=== PATIENT | female | born 1970 ===

== ENCOUNTER 2019-03-02 11:37 | Emergency (ER) | payer SELFPAY ==
[~2019-03-02] VITALS: Ht 167.6 cm; Wt 61.2 kg
--- NOTE | 2019-03-02 12:00 | NUR ---
ED Nurse Note: Received report from LIANE Murguia. Observed patient in bed, asleep, arousable to painful stimuli. On room air, no respiratory distress noted.
[2019-03-02 13:04] VITALS: BP 120/76
--- NOTE | 2019-03-02 13:23 | Emergency Room Report ---
History of Present Illness General Chief Complaint: Alcohol Intoxication Source: EMS (Alejandro Jc MD) Present Illness HPI 49-year-old female presents ED for evaluation. Patient brought in by EMS. Per EMS patient presenting for alcohol intoxication. Attempted to take a taxi but went patient appeared to intoxicated cabdriver called 911. EMS states they are familiar with this patient as she has history of alcohol abuse. On arrival patient unable to provide any additional history at this time. No reported head injury. No signs of distress upon arrival. No other aggravating relieving factors. No other associated symptoms (Alejandro Jc MD) Allergies: Coded Allergies: No Known Allergies (Unverified , 03/02/19) Patient History Past Medical History: none Past Surgical History: none Pertinent Family History: none Social History: Reports: alcohol use; Denies: smoking, drug use Now: No - unable to assess Immunizations: UTD Reviewed Nursing Documentation: PMH: Agreed; PSxH: Agreed (Alejandro Jc MD) Nursing Documentation-PMH Past Medical History Deferred: Pt Cognitively Impaired Past Medical History: Deferred (Alejandro Jc MD) Review of Systems All Other Systems: limited (Alejandro Jc MD) Physical Exam Vital Signs Date Time Temp Pulse Resp B/P (MAP) Pulse Ox O2 Delivery O2 Flow Rate FiO2 03/02/19 11:32 105 18 120/76 (91) 98 Room Air Sp02 EP Interpretation: reviewed, normal General Appearance: no apparent distress, GCS 15, non-toxic, lethargic, other - intoxicated Head: normocephalic Eyes: bilateral eye normal inspection, bilateral eye PERRL ENT: normal ENT inspection Neck: normal inspection Respiratory: chest non-tender, lungs clear, normal breath sounds, speaking full sentences Cardiovascular #1: regular rate, rhythm, no edema Gastrointestinal: normal inspection Rectal: deferred Genitourinary: no CVA tenderness Musculoskeletal: normal inspection Neurologic: other - intoxicated Psychiatric: normal inspection Skin: no rash Lymphatic: normal inspection (Alejandro Jc MD) Medical Decision Making Diagnostic Impression: Primary Impression: Acute alcoholic intoxication Labs Test 03/02/19 13:13 03/02/19 13:45 White Blood Count 6.0 K/UL (4.8-10.8) Red Blood Count 3.94 M/UL (4.20-5.40) Hemoglobin 12.0 G/DL (12.0-16.0) Hematocrit 36.5 % (37.0-47.0) Mean Corpuscular Volume 93 FL (80-99) Mean Corpuscular Hemoglobin 30.6 PG (27.0-31.0) Mean Corpuscular Hemoglobin Concent 33.0 G/DL (32.0-36.0) Red Cell Distribution Width 14.2 % (11.6-14.8) Platelet Count 220 K/UL (150-450) Mean Platelet Volume 5.3 FL (6.5-10.1) Neutrophils (%) (Auto) 52.5 % (45.0-75.0) Lymphocytes (%) (Auto) 39.1 % (20.0-45.0) Monocytes (%) (Auto) 7.4 % (1.0-10.0) Eosinophils (%) (Auto) 0.5 % (0.0-3.0) Basophils (%) (Auto) 0.4 % (0.0-2.0) Sodium Level 150 MMOL/L (136-145) Potassium Level 4.8 MMOL/L (3.5-5.1) Chloride Level 113 MMOL/L (98-107) Carbon Dioxide Level 23 MMOL/L (21-32) Anion Gap 14 mmol/L (5-15) Blood Urea Nitrogen 3 mg/dL (7-18) Creatinine 0.6 MG/DL (0.55-1.30) Estimat Glomerular Filtration Rate > 60 mL/min (>60) Glucose Level 99 MG/DL (74-106) Calcium Level 8.4 MG/DL (8.5-10.1) Total Bilirubin 0.3 MG/DL (0.2-1.0) Aspartate Amino Transf (AST/SGOT) 41 U/L (15-37) Alanine Aminotransferase (ALT/SGPT) 34 U/L (12-78) Alkaline Phosphatase 52 U/L (46-116) Total Protein 6.7 G/DL (6.4-8.2) Albumin 3.5 G/DL (3.4-5.0) Globulin 3.2 g/dL Albumin/Globulin Ratio 1.1 (1.0-2.7) Salicylates Level 3.8 ug/mL (2.8-20) Acetaminophen Level < 2 MCG/ML (10-30) Serum Alcohol 383 mg/dL Urine Opiates Screen Negative (NEGATIVE) Urine Barbiturates Screen Negative (NEGATIVE) Phencyclidine (PCP) Screen Negative (NEGATIVE) Urine Amphetamines Screen Negative (NEGATIVE) Urine Benzodiazepines Screen Positive (NEGATIVE) Urine Cocaine Screen Negative (NEGATIVE) Urine Marijuana (THC) Screen Negative (NEGATIVE) (Alejandro Jc MD) ER Course Patient was endorsed to me by . Patient had gradual improvement in mental status. at the time of discharge patient is awake alert oriented and able to ambulate without assistance. (Lazaro Roberts MD) Last Vital Signs Date Time Temp Pulse Resp B/P (MAP) Pulse Ox O2 Delivery O2 Flow Rate FiO2 03/02/19 11:32 105 18 120/76 (91) 98 Room Air Status: improved (Alejandro Jc MD) Disposition: HOME, SELF-CARE Condition: Stable Referrals: NOT CHOSEN [facility]/,REFERRING (PCP) Alejandro Jc MD Mar 02, 2019 13:23 Lazaro Roberts MD Mar 02, 2019 15:41
[2019-03-02 13:26] LABS: BASOPHILS % (AUTO) 0.4 % (0.0-2.0); EOSINOPHILS % (AUTO) 0.5 % (0.0-3.0); HEMATOCRIT 36.5 % (37.0-47.0); LYMPHOCYTES % (AUTO) 39.1 % (20.0-45.0); MEAN CORPUSCULAR VOLUME 93 FL (80-99); MONOCYTES % (AUTO) 7.4 % (1.0-10.0); NEUTROPHILS % (AUTO) 52.5 % (45.0-75.0); PLATELET COUNT 220 K/UL (150-450); RED BLOOD COUNT 3.94 M/UL (4.20-5.40); RED CELL DISTRIBUTION WIDTH 14.2 % (11.6-14.8)
[2019-03-02] MEDS ORDERED: UNOBMED (13:36)
[2019-03-02 13:40] LABS: ANION GAP 14 mmol/L (5-15); BLOOD UREA NITROGEN 3 mg/dL (7-18); CALCIUM 8.4 MG/DL (8.5-10.1); CARBON DIOXIDE 23 MMOL/L (21-32); CHLORIDE 113 MMOL/L (98-107); CREATININE 0.6 MG/DL (0.55-1.30); POTASSIUM 4.8 MMOL/L (3.5-5.1); SODIUM 150 MMOL/L (136-145)
[2019-03-02 13:47] LABS: ALANINE AMINOTRANSFERASE 34 U/L (12-78); ALBUMIN 3.5 G/DL (3.4-5.0); ALBUMIN/GLOBULIN RATIO 1.1 (1.0-2.7); ALKALINE PHOSPHATASE 52 U/L (46-116); ASPARTATE AMINO TRANSFERASE 41 U/L (15-37); BILIRUBIN,TOTAL 0.3 MG/DL (0.2-1.0)
--- NOTE | 2019-03-02 15:40 | NUR ---
ER DISCHARGE NOTE: Patient is cleared to be discharged per ERMD, pt is aox4, on room air, with stable vital signs. pt id band and iv site removed without complications. pt is able to ambulate with steady gait. pt took all belongings.
[2019-03-03] MEDS ORDERED: LIBRIUM25 MG ORAL (02:02)
== END 2019-03-02 15:40 | disposition home or self-care (01) ==
LOC: EDBD 11:37 → EMR 12:07
DX: F10.129 Alcohol abuse with intoxication, unspecified (principal); Y90.8 Blood alcohol level of 240 mg/100 ml or more
CPT/HCPCS: 36415; 80053; 80307; 85025; 96360; 99284; G0480; 80329

== ENCOUNTER 2019-03-02 21:49 | Emergency (ER) | payer SELFPAY ==
[~2019-03-02] VITALS: Ht 167.6 cm; Wt 63.5 kg
[~2019-03-02 21:49] MED LIST: UNOBMED
--- NOTE | 2019-03-02 21:49 | NUR ---
ED Nurse Note: Patient brought in by ambulance RA 63, has complaints of ETOH intoxication. Will continue to monitor patient. Patient is sleeping and tired. patient appears visibly shakey and has limited ability to answer questions.
[2019-03-02 21:50] VITALS: BP 151/97
--- NOTE | 2019-03-02 22:20 | Emergency Room Report ---
History of Present Illness General Chief Complaint: Alcohol Intoxication Source: Patient Present Illness HPI Is a 49-year-old female with history of alcohol abuse. She presents with chief complaint of alcohol intoxication. She was seen here earlier this morning and was discharged this afternoon. She was found on the street intoxicated. Bystander called 911. There is no trauma. She admits to drinking alcohol. No other injury. History is limited because of her intoxication. Allergies: Coded Allergies: No Known Allergies (Unverified , 03/02/19) Patient History Past Medical History: see triage record, old chart reviewed Past Surgical History: none Pertinent Family History: none Social History: Reports: alcohol use Now: No Immunizations: other Reviewed Nursing Documentation: PMH: Agreed; PSxH: Agreed Nursing Documentation-PMH Past Medical History: No Stated History Review of Systems Eye: Denies: eye pain, blurred vision ENT: Denies: ear pain, nose congestion, throat swelling Respiratory: Denies: cough, shortness of breath Cardiovascular: Denies: chest pain, palpitations Gastrointestinal: Denies: abdominal pain, diarrhea, nausea, vomiting Musculoskeletal: Denies: back pain, joint pain Skin: Denies: rash Neurological: Denies: headache, numbness Endocrine: Denies: increased thirst, increased urine Hematologic/Lymphatic: Denies: easy bruising All Other Systems: limited - Secondary to intoxication Physical Exam Vital Signs Date Time Temp Pulse Resp B/P (MAP) Pulse Ox O2 Delivery O2 Flow Rate FiO2 03/02/19 21:50 98.1 103 18 151/97 (115) 99 Room Air Vitals normal Sp02 EP Interpretation: reviewed, normal General Appearance: well appearing, no apparent distress, other - intoxicated Head: normocephalic, atraumatic Eyes: bilateral eye PERRL, bilateral eye EOMI ENT: hearing grossly normal, normal pharynx Neck: full range of motion, supple, no meningismus Respiratory: chest non-tender, lungs clear, normal breath sounds Cardiovascular #1: regular rate, rhythm, no murmur Gastrointestinal: normal bowel sounds, non tender, no mass, no organomegaly, no bruit, non-distended Musculoskeletal: back normal, gait/station normal, normal range of motion Psychiatric: mood/affect normal Medical Decision Making Diagnostic Impression: Primary Impression: Acute alcoholic intoxication Qualified Codes: F10.920 - Alcohol use, unspecified with intoxication, uncomplicated ER Course This patient presents with alcohol intoxication. No trauma to warrant x-ray or CT scan. Patient improving after sleeping for several hours. Not suicidal or homicidal. Will discharge home with prescription for Librium. Last Vital Signs Date Time Temp Pulse Resp B/P (MAP) Pulse Ox O2 Delivery O2 Flow Rate FiO2 03/02/19 21:50 98.1 103 18 151/97 (115) 99 Room Air Status: improved Disposition: HOME, SELF-CARE Condition: Stable Scripts Chlordiazepoxide (Chlordiazepoxide HCl) 25 Mg Capsule 25 MG ORAL THREE TIMES A DAY, #15 CAP 0 Refills Prov: Taran Toribio MD 03/03/19 Referrals: NOT CHOSEN [facility]/MD,REFERRING (PCP) Patient Instructions: Alcohol Intoxication, [id number] Additional Instructions: Abstain from alcohol. Follow-up with your doctor in 7 days. Go to rehab. Return if worse. Taran Toribio MD Mar 02, 2019 22:20
[2019-03-02 22:39] VITALS: BP 109/59
--- NOTE | 2019-03-02 22:41 | NUR ---
ED Nurse Note: Patient sleeping soundly, has no complaints at this time. vital signs stable and documented. Will continue to monitor.
[2019-03-02] MEDS ORDERED: LORazepam Inj 2mg/ml 1ml IM ONE (23:00)
--- NOTE | 2019-03-02 23:52 | NUR ---
ED Nurse Note: Patient request additional blanket. Warm blanket provided. Montrell continue to monitor.
--- NOTE | 2019-03-03 00:52 | NUR ---
ED Nurse Note: Patient sleeping soundly with no s/s of acute distress.
--- NOTE | 2019-03-03 01:55 | NUR ---
ED Nurse Note: Patient sleeping soundly, no s/s of acute distress, will continue to monitor.
[2019-03-03] MEDS ORDERED: LIBRIUM25 MG ORAL (02:02)
--- NOTE | 2019-03-03 03:13 | NUR ---
ED Nurse Note: Patient ambulated with restroom with steady gait. Patient reports history of seizure and requested seizure medication because she believes she is having a simple partial sezisure. ERMD notified and new orders carried out. Will continue to monitor.
[2019-03-03] MEDS ORDERED: chlordiazePOXIDE 25mg Cap ORAL ONE (03:15)
[2019-03-03 06:45] VITALS: BP 109/59
--- NOTE | 2019-03-03 06:47 | NUR ---
ER DISCHARGE NOTE: Patient is cleared to be discharged per ERMD, pt is aox4, on room air, with stable vital signs. pt was given dc and prescription instructions, pt was able to verbalize understanding, pt id band and iv site removed without complications. pt is able to ambulate with steady gait. pt took all belongings.
== END 2019-03-03 06:45 | disposition home or self-care (01) ==
LOC: EDBD 21:49 → EMR 22:05
DX: F10.920 Alcohol use, unspecified with intoxication, uncomplicated (principal)
CPT/HCPCS: 96372; 99283